=== PATIENT | female | born 1960 | race African-American/Black ===

== ENCOUNTER 2017-04-24 09:43 | Emergency (ER) | payer OTHER ==
[~2017-04-24] VITALS: Ht 175.3 cm; Wt 100.2 kg
--- NOTE | 2017-04-24 09:45 | NUR ---
BBRA 89 FROM HOME C/O N/V SINCE LAST NIGHT EPIGASTRIC PAIN. -DIARRHEA. RECENT HOSPITALIZATION CHF. A/OX 4. BREATHING EVEN AND UNLABORED. NO SOB. VITALS STABLE. SAFETY AND COMFORT MEASURSE IN PLACE. AWAITING MD ORDERS.
--- NOTE | 2017-04-24 09:50 | NUR ---
NEW IV STARTED ON LAC, 20 G. BLOOD DRAWN AND SENT TO LAB.
[2017-04-24] MEDS ORDERED: ONDANSETRON HCL/PF 4 MG/2 ML VIAL ONE ×3 (09:55→13:35)
[2017-04-24] MEDS ORDERED: ONDANSETRON HCL/PF 4 MG/2 ML VIAL IVP ONE ×2 (10:00→13:30)
[2017-04-24] MEDS ORDERED: IV NS 0.9% 1,000 ML BAG IV ONE (10:00)
[2017-04-24] MEDS ORDERED: BUME1TAB4 PO (10:06)
[2017-04-24] MEDS ORDERED: IBUP-1482 PO (10:06)
[2017-04-24] MEDS ORDERED: CARV3.122 PO (10:06)
[2017-04-24] MEDS ORDERED: SPIR25TA4 PO (10:06)
[2017-04-24] MEDS ORDERED: LORA0.5T PO (10:06)
[2017-04-24] MEDS ORDERED: FURO40TA5 PO (10:06)
[2017-04-24] MEDS ORDERED: SACU1TAB PO (10:06)
[2017-04-24 10:10] LABS: BASOPHILS % (AUTO) 0.6 % (0.0-2.0); EOSINOPHILS % (AUTO) 0.3 % (0.0-6.0); HEMATOCRIT 44 % (33-45); HEMOGLOBIN 13.8 g/dL (11.5-14.8); LYMPHOCYTES # (AUTO) 0.9 /CMM (0.8-4.8); MEAN CORPUSCULAR HEMOGLOBIN 27 PG (26.0-33.0); MEAN CORPUSCULAR HGB CONC 31 g/dl (31.0-36.0); MEAN CORPUSCULAR VOLUME 85 fL (82-100); MONOCYTES # (AUTO) 0.6 /CMM (0.1-1.30); MONOCYTES % (AUTO) 9.2 % (2.0-12.0); NEUTROPHILS # (AUTO) 4.6 /CMM (1.8-8.9); NEUTROPHILS % (AUTO) 75.9 % (43.0-81.0); PLATELET COUNT (AUTO) 218 /CMM (150-450); RDW COEFFICIENT OF VARIATION 15.8 (11.5-15.0); RED BLOOD CELL COUNT(AUTO) 5.17 MIL/uL (4.0-5.2); WHITE BLOOD COUNT (AUTO) 6.1 K/uL (4.3-11.0)
[2017-04-24 10:22] LABS: CALCIUM, SERUM 9.5 mg/dL (8.5-10.1); CREATININE 1.7 mg/dL (0.6-1.3); POTASSIUM 4.5 mmol/L (3.5-5.1)
[2017-04-24 10:27] LABS: ALBUMIN 4.4 g/dL (3.4-5.0); BILIRUBIN,DIRECT 0.4 mg/dL (0.0-0.2); BILIRUBIN,TOTAL 1.6 mg/dL (0.2-1.0); TOTAL PROTEIN, SERUM 7.3 g/dL (6.4-8.2)
[2017-04-24 10:30] LABS: TROPONIN I 0.018 ng/mL (0.00-0.056)
[2017-04-24] MEDS ORDERED: LORAZEPAM INJ 2 MG/ML VIAL ONE (10:57)
[2017-04-24] MEDS ORDERED: LORAZEPAM INJ 2 MG/ML VIAL IVP ONE (11:00)
--- NOTE | 2017-04-24 11:10 | NUR ---
US TECH AT BEDSIDE.
--- NOTE | 2017-04-24 11:30 | NUR ---
SECOND IV STARTED ON RFA, 20 G.
[2017-04-24] MEDS ORDERED: IV NS 0.9% 1,000 ML IV PRN (11:54)
[2017-04-24] MEDS ORDERED: ACETAMINOPHEN 325 MG TABLET PO PRN (12:00)
[2017-04-24] MEDS ORDERED: ZOLPIDEM TARTRATE 5 MG TABLET PO PRN (12:00)
[2017-04-24] MEDS ORDERED: ONDANSETRON HCL/PF 4 MG/2 ML VIAL IVP PRN (12:00)
[2017-04-24] MEDS ORDERED: MAGNESIUM HYDROXIDE 30 ML UDC PO PRN (12:00)
[2017-04-24] MEDS ORDERED: MAG HYDROX/AL HYDROX/SIMETH 30 ML UDC PO PRN (12:00)
[2017-04-24] MEDS ORDERED: Z GUARD REMEDY 2 OZ OINT TP PRN (12:00)
[2017-04-24] MEDS ORDERED: HYDROCODONE/APAP 5/325MG 1 EACH TABLET PO PRN (12:00)
--- NOTE | 2017-04-24 12:01 | NUR ---
[facility] NUMBER [id number] - CALL FOR REPORT [phone] -- TRIP CODE [id number] - TRANSPORT IS [facility]
--- NOTE | 2017-04-24 13:18 | NUR ---
CALLED [facility] FOR TRANSPORT TO [facility], ETA 15 MIN
--- NOTE | 2017-04-24 13:48 | NUR ---
REPORT GIVEN TO MARCELLE BAUTISTA AT [facility]. REPORT ALSO GIVEN TO EMT AT BEDSIDE. PATIENT STABLE FOR TRANSFER. LEFT VIA AMBULANCE.
[2017-04-24 13:50] VITALS: BP 128/72
== END 2017-04-24 13:55 | disposition short-term general hospital (02) ==
LOC: ER 09:48
DX: R11.2 Nausea with vomiting, unspecified (principal); I50.9 Heart failure, unspecified; Z95.0 Presence of cardiac pacemaker; Z95.810 Presence of automatic (implantable) cardiac defibrillator
CPT/HCPCS: 36415; 71010; 76705; 80048; 80076; 83690; 84484; 85025; 87081; 93005; 96361; 96374 ×2; 96375; 99285; A4606; J2060; J2405 ×3; J7030; Z7610